=== PATIENT | male | born 1960 | race Caucasian/White ===

== ENCOUNTER 2018-08-23 17:49 | Emergency (ER) | payer OTHER, SELFPAY ==
[2018-08-23 18:03] VITALS: BP 136/90; PULSE 85; RESP 18; TEMP 35.8; O2SAT 98
--- NOTE | 2018-08-23 18:28 | DI.RAD.S_ITS ---
PROCEDURE: XR FOREARM RT 2V INDICATIONS: fall off ladder TECHNIQUE: 2 views of the forearm were acquired. COMPARISON: None. FINDINGS: Bones: No fractures or dislocations. No suspicious bony lesions. Soft tissues: No suspicious soft tissue calcifications or masses. IMPRESSION: No visualized acute fracture or dislocation. However, if clinical concern and/or pain persist, short interval imaging followup in 7-10 days is recommended, as occult injury cannot be definitively excluded. Dictated by: Katia Enriquez M.D. on 08/23/2018 at 19:19 Approved by: Katia Enriquez M.D. on 08/23/2018 at 19:21
--- NOTE | 2018-08-23 18:28 | DI.RAD.S_ITS ---
PROCEDURE: XR RIBS LT MIN 3V W CXR1V INDICATIONS: fall off ladder TECHNIQUE: 3 views of the left ribs were acquired, along with a single view chest. COMPARISON: None. FINDINGS: Surgical changes and devices: None. Bones and chest wall: No fractures or dislocations. No suspicious bony lesions. Overlying soft tissues appear unremarkable. Lungs and pleura: No pleural effusions or pneumothorax. Lungs appear clear. Mediastinum: Mediastinal contours appear normal. Heart size is normal. IMPRESSION: No visualized acute fracture or dislocation. However, if clinical concern and/or pain persist, short interval imaging followup in 7-10 days is recommended, as occult injury cannot be definitively excluded. Dictated by: Katia Enriquez M.D. on 08/23/2018 at 19:21 Approved by: Katia Enriquez M.D. on 08/23/2018 at 19:22
--- NOTE | 2018-08-23 18:53 | DI.CT.S_ITS ---
PROCEDURE: CT HEAD/BRAIN WO CON INDICATIONS: fall off ladder TECHNIQUE: Noncontrast 4.5 mm thick angled axial sections acquired from the foramen magnum to the vertex, with coronal and sagittal reformats. For radiation dose reduction, the following was used: automated exposure control, adjustment of mA and/or kV according to patient size. COMPARISON: None. FINDINGS: Image quality: Excellent. CSF spaces: Basal cisterns are patent. No extra-axial fluid collections. Ventricles are normal in size and shape. Brain: No midline shift. No intracranial masses or hemorrhage. Amor-white matter interface is normal. Skull and face: Calvarium and visualized facial bones are intact, without suspicious lesions. Sinuses: Visualized sinuses and mastoids are clear. IMPRESSION: 1. No acute intracranial process. Dictated by: Katia Enriquez M.D. on 08/23/2018 at 19:24 Approved by: Katia Enriquez M.D. on 08/23/2018 at 19:25
--- NOTE | 2018-08-23 19:45 | ED.FALL ---
HPI - Fall <AVTAR Ohara - Last Filed: 08/23/18 20:05> General Chief Complaint: Trauma Stated Complaint: fall from ladder, left arm pain,thinks broken Time Seen by Provider: 08/23/18 18:22 Source: patient Mode of arrival: ambulatory Limitations: no limitations History of Present Illness complaint: fall Onset (ago): day(s) (earlier today) Fall from: from height (distance) (approx 3 feet) Fall witnessed: no Place fall occurred: home Loss of consciousness: none Prolonged down time: no Symptoms prior to fall: none Context: other (on ladder to clean out gutter, reaching up to gutter and heard clunk clunk and the extension on the ladder was going back into itself, so down he went and then he landed on top of ladder on his back) Location of injury: head and chest Location of injury - extremities: Left: forearm Severity: mild Associated symptoms (after fall): denies Related Data Previous Rx's Medication Instructions Recorded albuterol sulfate [Proventil HFA] 1 puff INH QID #1 inh 10/26/16 azithromycin [Zithromax] 250 mg PO QDAY #6 tab 10/26/16 codeine-guaifenesin [Cheratussin 5 ml PO Q4HP PRN #6 ml 10/26/16 AC] Allergies Allergy/AdvReac Type Severity Reaction Status Date / Time No Known Drug Allergies Allergy Verified 08/23/18 20:11 Review of Systems <AVTAR Ohara - Last Filed: 08/23/18 20:05> Review of Systems All systems reviewed & are unremarkable except as noted in HPI and below Constitutional Reports system reviewed and no additional complaints, except as docu Eyes Denies blurry vision and Denies loss of vision ENT Ears, Nose, Mouth, and Throat: Denies dizziness Cardiovascular Denies chest pain, Denies syncope and Denies dyspnea Respiratory Denies cough, Reports pain on inspiration, Denies dyspnea and Denies wheezing Gastrointestinal Gastrointestinal: Denies abdominal pain and Denies vomiting Genitourinary Denies hematuria, Denies difficulty urinating and Denies flank pain Musculoskeletal Reports as per HPI, Denies abnormal gait, Denies back pain and Denies deformity Neurologic Denies abnormal gait, Denies dizziness, Denies syncope and Denies loss of vision Allergic/Immunologic Denies wheezing Exam <AVTAR Ohara - Last Filed: 08/23/18 20:05> Initial Vital Signs Initial Vital Signs: Vital Signs Temperature 96.5 F L 08/23/18 18:03 Pulse Rate 85 08/23/18 18:03 Respiratory Rate 18 08/23/18 18:03 Blood Pressure 136/90 08/23/18 18:03 Pulse Oximetry 98 08/23/18 18:03 Const General: cooperative, healthy appearing, comfortable, well developed and well groomed Nutritional Appearance: average body habitus Orientation: alert, awake and oriented x3 HENMT Head: normal to inspection and normocephalic Ears: hearing grossly normal bilaterally, external ears normal, TM's normal bilaterally and mastoids normal Nose: external nose normal, nares normal and septum normal Face and sinus: sinuses nontender, face symmetric and laceration (R eyebrow area, 1cm closed with scab, no s/s of infection, no erythema, mild tenderness, mild swelling and contusion to that area) Mouth: oral mucosae normal, lip normal, tongue normal, oropharynx normal, moist mucous membranes and No mouth trauma Teeth and gingiva: dentition normal and gingiva normal Throat: posterior oropharynx normal, tonsils normal and uvula midline Eyes General: appearance normal, both eyes and all related structures Visual Juárez: normal visual juárez by confrontation Eyelids: eyelids normal Conjunctivae: conjunctivae normal Sclera: sclerae normal Pupils: PERRL EOM: EOM intact bilaterally Direct ophthalmoscopy: normal light reflex, no papilledema, fundi normal bilaterally and anterior chamber normal Neck Neck: normal visual inspection, full ROM, no meningeal signs, trachea midline, supple, No lymphadenopathy, No midline deformity, No tender and No tracheal deviation Chest Chest: normal inspection of the chest, abnormal inspection of the chest and tenderness (L posterior ribs and contusion noted) Resp Effort & Inspection: normal respiratory effort and able to speak in complete sentences Auscultation: clear to auscultation bilaterally Cardio Rate: regular rate Rhythm: regular rhythm Heart Sounds: S1 normal and S2 normal Back/Spine/Pelvis Back: normal to inspection and No back tenderness Cervical Spine: cervical ROM normal Thoracic/Lumbar Spine: thoracic and lumbar spine normal to inspection and thoraco-lumbar ROM normal Sacroiliac Joints: nontender Skin General: no rashes or lesions noted, elasticity normal, turgor normal and dry skin Neuro General: alert, awake, oriented x3 and meningeal signs present Cognition: normal cognition Speech: speech normal Gait: normal gait Motor: muscle tone normal throughout Sensory Exam: no sensory deficits noted Other: GCS 15 Extrem General: normal to inspection and full ROM Right upper extremity: normal to inspection, full ROM and normal capillary refill Left upper extremity: full ROM, normal capillary refill and elbow/forearm (abrasion with contusion starting to posterior fa with tenderness) Right lower extremity: normal to inspection and full ROM Left lower extremity: full ROM and lower leg (abrasion to lower leg, jean-baptiste area) Psych Appearance: grossly normal and well kempt Mental Status: mental status grossly normal Speech and Movement: speech and movement normal Mood: congruent mood Affect: normal affect Attitude: cooperative Thought Process: normal Thought Content: normal Judgment: judgment good <DO Marc Singh Last Filed: 08/23/18 21:29> Initial Vital Signs Initial Vital Signs: Vital Signs Temperature 96.5 F L 08/23/18 18:03 Pulse Rate 85 08/23/18 18:03 Respiratory Rate 18 08/23/18 18:03 Blood Pressure 136/90 08/23/18 18:03 Pulse Oximetry 98 08/23/18 18:03 Course <AVTAR Ohara - Last Filed: 08/23/18 20:05> Course Narrative: results and dc plan discussed, pt has gabapentin and meloxicam at home for chronic back pain issues Orders Ordered: ED Orders 08/23/18 18:28 XR forearm LT 2V Stat XR ribs LT min 3V w CXR1V Stat 08/23/18 18:53 CT head/brain wo con Stat Discontinued Medications Hydrocodone Bitart/Acetaminophen ([place] 5/325) 1 tab PO NOW ONE Stop: 08/23/18 20:10 Last Admin: 08/23/18 20:12 Dose: 1 tab Vital Signs - 8 hr 08/23/18 18:03 08/23/18 20:09 08/23/18 20:14 Temperature 96.5 F L Pulse Rate 85 80 87 Respiratory Rate 18 13 Blood Pressure 136/90 140/82 Blood Pressure [Right Arm] 140/98 H Pulse Oximetry 98 97 98 <DO Marc Singh Last Filed: 08/23/18 21:29> Orders Ordered: ED Orders 08/23/18 18:28 XR forearm LT 2V Stat XR ribs LT min 3V w CXR1V Stat 08/23/18 18:53 CT head/brain wo con Stat Discontinued Medications Hydrocodone Bitart/Acetaminophen ([place] 5/325) 1 tab PO NOW ONE Stop: 08/23/18 20:10 Last Admin: 08/23/18 20:12 Dose: 1 tab Vital Signs - 8 hr 08/23/18 18:03 08/23/18 20:09 08/23/18 20:14 Temperature 96.5 F L Pulse Rate 85 80 87 Respiratory Rate 18 13 Blood Pressure 136/90 140/82 Blood Pressure [Right Arm] 140/98 H Pulse Oximetry 98 97 98 MDM - Fall <AVTAR Ohara - Last Filed: 08/23/18 20:05> Differential Diagnosis Likely other (fall, closed head injury, fx, sprains, contusions, lacs, abrasions) Discharge Plan Departure Patient Disposition: Home Clinical Impression: Fall, Contusion of rib, Abrasion, multiple sites Discharge Date/Time: 08/23/18 20:15 Interventions: ED Discharge Assessment Last Done: 08/23/18 20:14 Instructions: DI for Contusion, DI for Abrasion Prescriptions: No Action azithromycin [Zithromax] 250 MG tablet 250 mg PO QDAY Qty: 6 RF: 0 codeine-guaifenesin [Cheratussin AC] 118 ML liquid 5 ml PO Q4HP PRNQty: 6 RF: 0 albuterol sulfate [Proventil HFA] 90 MCG/PUFF HFA aerosol inhaler 1 puff INH QID Qty: 1 RF: 0 Referrals: Leena Gayle MD [Primary Care Provider] - (follow up in approx 5-7 days as needed) <Jenna Meyers DO - Last Filed: 08/23/18 21:29> Cosign ED Attending Cosignature Attestation: I was immediately available in the department for consultation. This documentation has been reviewed. Patient Head CT, Rib xray and forearm xray are negative and I agree with assessment and plan. Supervised by Jenna Meyers DO
[2018-08-23 20:09] VITALS: BP 140/98; PULSE 80; O2SAT 97
[2018-08-23] MEDS: HYDROCODONE/ACET 5/325 TABLET 1 TAB PO (20:12)
[2018-08-23 20:14] VITALS: BP 140/82; PULSE 87; RESP 13; O2SAT 98
== END 2018-08-23 20:15 | disposition home or self-care (01) ==
PROVIDERS: Emergency Provider Nurse Practitioner; Family Provider Family Medicine; PCP Family Medicine
DX: S20.219A Contusion of unspecified front wall of thorax, initial encounter (principal); S50.312A Abrasion of left elbow, initial encounter; S80.812A Abrasion, left lower leg, initial encounter; W11.XXXA Fall on and from ladder, initial encounter
CPT/HCPCS: 70450; 71101; 73090; 99283

== ENCOUNTER → 2021-01-30 07:37 | Outpatient (CLI) | payer OTHER, SELFPAY ==
[2021-01-30] MEDS: COVID-19 VACC, Ad26(JANSSEN)/PF 0.5 ML IM (07:48)
== END ==
PROVIDERS: Family Provider Family Medicine; PCP Family Medicine; Visit Provider Internal Medicine
DX: Z23 Encounter for immunization (principal)
CPT/HCPCS: 0031A; 91303

== ENCOUNTER → 2023-02-02 12:49 | Outpatient (CLI) | payer OTHER, SELFPAY ==
--- NOTE | 2023-02-02 12:56 | DI.RAD.S_ITS ---
PROCEDURE: XR CHEST 2V INDICATIONS: XRAY-WHEEZING TECHNIQUE: 2 views of the chest were acquired. COMPARISON: None. FINDINGS: Surgical changes and devices: None. Lungs and pleura: Lungs are clear. No pleural effusions or pneumothorax. Mediastinum: Mediastinal contours are normal. Heart size is normal. Bones and chest wall: No suspicious bony abnormalities. Soft tissues appear unremarkable. IMPRESSION: No acute cardiopulmonary findings. Dictated by: Kym Lam M.D. on 02/02/2023 at 14:33 Approved by: Kym Lam M.D. on 02/02/2023 at 14:33
== END ==
PROVIDERS: Family Provider Family Medicine; PCP Family Medicine; Referring Provider Family Medicine; Visit Provider Family Medicine
DX: R06.2 Wheezing (principal)
CPT/HCPCS: 71046

== ENCOUNTER → 2023-02-18 14:53 | Outpatient (CLI) | payer OTHER, SELFPAY ==
--- NOTE | 2023-02-27 12:08 | PM.PFT.1 ---
Pulmonary Function Test Referral & Results Date Patient Seen: 02/18/23 Results: The spirometry demonstrates an FVC of 4.12 L which is 71% of predicted. The FEV1 was measured at 2.23 L which is 51% of predicted. The FEV1/FVC ratio was 54 which is 72% of predicted. Following the administration of bronchodilator there was a 24% improvement in FEV1 and a 124% improvement in FEF 25-75%. Lung volumes show an SVC of 4.68 L which is 83% of predicted. The diffusing capacity was measured at 36.01 which is 89% of predicted. The maximum voluntary ventilation was reduced Interpretation: This study demonstrates moderate obstructive lung disease with evidence of significant benefit following bronchodilator as above Lung volumes are probably normal although the maybe a slight reduction in SVC suggesting the possibility of mild restrictive lung disease Clinical correlation suggested
== END ==
PROVIDERS: Family Provider Family Medicine; PCP Family Medicine; Referring Provider Family Medicine; Visit Provider Family Medicine
DX: R06.2 Wheezing (principal); F17.210 Nicotine dependence, cigarettes, uncomplicated; J98.8 Other specified respiratory disorders
CPT/HCPCS: 94060; 94726; 94729

== ENCOUNTER → 2023-02-20 15:43 | Outpatient (CLI) | payer OTHER, SELFPAY ==
--- NOTE | 2023-02-20 15:48 | DI.CT.S_ITS ---
PROCEDURE: CT CHEST W CON INDICATIONS: Wheezing TECHNIQUE: After the administration of intravenous contrast, 5 mm thick sections acquired from the pulmonary apices to the posterior costophrenic angles. 1 mm axial lung, 5 mm thick coronal and sagittal reformats and 7 mm axial MIP were acquired. For radiation dose reduction, the following was used: automated exposure control, adjustment of mA and/or kV according to patient size. COMPARISON: None. FINDINGS: Image quality: Excellent. Lungs and pleura: No acute air space opacities. No pleural effusions or pneumothorax. Central and peripheral airways are patent and normal in caliber. Gpbi-uz-vklkqkkz bronchial thickening. Mediastinum: Heart size is normal. No pericardial effusion. No mediastinal or hilar adenopathy by size criteria. Thoracic aorta and central pulmonary arteries are normal in size. Esophagus is normal in caliber. No hiatal hernia. Bones and chest wall: No suspicious bony lesions. No vertebral body compression fractures. No axillary or supraclavicular adenopathy by size criteria. Thyroid gland is unremarkable . Abdomen: Visualized upper abdominal solid organs appear normal. Upper abdominal bowel loops are normal in caliber. IMPRESSION: [id number] bronchial thickening, suggestive of respiratory bronchitis. No mosaic attenuation to suggest small airways disease. Dictated by: Ayush Mejia M.D. on 02/20/2023 at 16:32 Approved by: Ayush Mejia M.D. on 02/20/2023 at 16:35
== END ==
PROVIDERS: Family Provider Family Medicine; PCP Family Medicine; Referring Provider Family Medicine; Visit Provider Family Medicine
DX: R06.2 Wheezing (principal)
CPT/HCPCS: 71260; Q9967

== ENCOUNTER 2023-07-07 12:03 | Day surgery (SDC) | payer OTHER, SELFPAY ==
[2023-07-07] MEDS: LACTATED RINGERS 1,000 ML 200 ML IV (12:23)
[2023-07-07 12:32] VITALS: BP 143/90; PULSE 84; RESP 16; TEMP 36.1; O2SAT 97; BMI 27.8
--- NOTE | 2023-07-07 13:25 | PM.HP.1 ---
History of Present Illness History of Present Illness Date Patient Seen: 07/07/23 Time Patient Seen: 13:25 Chief complaint: SDC Narrative: 63-year-old male here for screening colonoscopy. Previous colonoscopy greater than 10 years ago normal. No family history of intestinal malignancy. [facility] Social History household members: spouse Smoking Status: Former smoker Meds Home Medications and Allergies Home Medications Medication Instructions Recorded Confirmed Type amitriptyline 25 mg tablet 25 mg PO ONCE PM 07/07/23 07/07/23 History fluticasone 250 mcg-salmeterol 50 1 ea inhalation BID 07/07/23 07/07/23 History mcg/dose blistr powdr for inhalation meloxicam 7.5 mg tablet 7.5 mg PO DAILY 07/07/23 07/07/23 History Allergies Allergy/AdvReac Type Severity Reaction Status Date / Time No Known Drug Allergies Allergy Verified 08/23/18 20:11 Exam Vital Signs (past 8 hours): - 07/07/23 12:32 Temperature 97 F L Pulse Rate 84 Respiratory Rate 16 Blood Pressure 143/90 H Pulse Oximetry 97 Oxygen Delivery Method Room Air Oxygen Delivery Method Room Air Narrative Exam Narrative: General adult man alert oriented no acute distress Abdomen soft nontender nondistended Assessment & Plan Assessment & Plan narrative: The patient requires colorectal screening and colonoscopy is recommended. Technical details were discussed. Risks, benefits, alternatives explained. Risks including but not limited to myocardial infarction, aspiration, bleeding, pain, missed lesion, incomplete examination, need for further radiographic studies, colonic perforation, and need for major abdominal surgery were discussed. All questions were answered to their satisfaction, and they are in agreement with this plan.
[2023-07-07 13:59] VITALS: BP 131/81; PULSE 80; RESP 16; TEMP 36.2; O2SAT 95
--- NOTE | 2023-07-07 14:02 | PM.OP.COLON ---
Operative Date/Time/Diagnoses Date of procedure: 07/07/23 Time of procedure: 14:03 Pre-op diagnosis: Colorectal screening Post-op diagnosis: same Procedure & Clinicians Study performed: Colonoscopy Same procedure as scheduled: Yes Indications: Colorectal screening Surgeon: Joe Parker Procedure Notes Procedure in detail: The history and physical was performed/updated and the patient is ASA class is 2. The procedure was discussed in detail with the patient. Potential risks complications including infection, bleeding, missed diagnosis, perforation, need for surgery, and were explained. Their questions were answered and informed consent was obtained. Patient was brought to the procedure room and placed standard monitoring equipment. The patient's vital signs were monitored continuously throughout the entire procedure. Prior to starting time-out was performed. The patient was placed in the left lateral recumbent position. Procedural sedation was administered by anesthesia. Examination began with a thorough inspection of the perianal area there was no evidence of fissures, fistulae, external hemorrhoids or cutaneous malignancy. The colonoscopy scope was then placed into the anal canal and was advanced to the cecum, which was identified by the ileocecal valve, the appendiceal orifice and the confluence of the taenia. The scope was then slowly withdrawn examining colon thoroughly in all directions, irrigating it of any residual stool. No masses or polyps. Normal healthy colon. The patient tolerated the procedure well. They will be discharged once criteria are met. The prep was of good/excellent quality. The withdrawl time was 6 minutes. Specimen(s): none sent Impression: Normal colonoscopy Post-procedure Recommendations: Colonoscopy in 10 years Disposition: same day surgery
[2023-07-07 14:04] VITALS: BP 131/90; PULSE 87; RESP 16; O2SAT 94
[2023-07-07 14:10] VITALS: BP 130/96; PULSE 86; RESP 12; TEMP 36.2; O2SAT 94
[2023-07-07 14:15] VITALS: BP 135/94; PULSE 83; RESP 12; O2SAT 94
[2023-07-07 14:25] VITALS: BP 138/90; PULSE 83; RESP 16; TEMP 36.6; O2SAT 96
== END 2023-07-07 14:32 | disposition home or self-care (01) ==
PROVIDERS: Family Provider Family Medicine; PCP Family Medicine; Referring Provider Surgery; Visit Provider Surgery
PROC: 0DJD8ZZ Inspection of Lower Intestinal Tract, Via Natural or Artificial Opening Endoscopic (ICD-10-PCS; CPT 45378; principal; 2023-07-07 13:15)
DX: Z12.11 Encounter for screening for malignant neoplasm of colon (principal)
CPT/HCPCS: 45378; J2704; J3010

== ENCOUNTER → 2023-09-17 15:58 | Outpatient (CLI) | payer OTHER, SELFPAY ==
[2023-09-17 18:36] LABS: BUN Creatinine Ratio 15.1 (6-22); Blood Urea Nitrogen 16 mg/dL (9-20); Calcium 9.2 mg/dL (8.4-10.2); Carbon Dioxide 27 mmol/L (22-32); Chloride 102 mmol/L (98-107); Estimated Glomerular Filt Rate > 60 mL/min (>60); Glucose 99 mg/dL (80-110); HEMOLYSIS < 15 (0-50); Potassium 4.2 mmol/L (3.4-5.1); Sodium 138 mmol/L (137-145)
== END ==
PROVIDERS: Family Provider Family Medicine; PCP Family Medicine; Referring Provider Urology; Visit Provider Urology
DX: R31.21 Asymptomatic microscopic hematuria (principal); Z77.22 Contact with and (suspected) exposure to environmental tobacco smoke (acute) (chronic)
CPT/HCPCS: 36415; 80048

== ENCOUNTER → 2023-09-22 10:42 | Outpatient (CLI) | payer OTHER, SELFPAY ==
--- NOTE | 2023-09-22 11:00 | DI.MRI.S_ITS ---
PROCEDURE: MR PELVIC PROSTATE PROTOCOL INDICATIONS: Elevated PSA TECHNIQUE: Coronal HASTE, axial T1 FSE with fat saturation, 3-plane nonbreath-hold T2 FSE. After the administration of contrast, dynamic axial, delayed axial and coronal VIBE or 2-D FLASH with fat saturation through the pelvis. Optional diffusion weighted imaging and ADC may be performed. COMPARISON: None. FINDINGS: Image quality: Diffusion weighted and dynamic contrast enhanced images are diagnostic. Prostate: Gland size is 4.2 x 4.6 x 6.1 cm; ellipsoid gland volume is 61 mL. No PI-RADS 3 through 5 lesions. Focus of wedge-shaped T2 hypointense signal with capsular retraction and no restricted diffusion within the medial peripheral zone of the prostate midgland (series 5, image 13) Genitourinary system: Bladder wall thickness is normal. Distal ureters are non distended. Bowel and peritoneum: No pathologic free pelvic fluid. Inferior colon and small bowel loops are normal in caliber. Colonic diverticulosis without evidence of diverticulitis. Nodes and vessels: No pelvic or inguinal adenopathy by size criteria. Iliac vessels are normal in caliber. Soft tissues: No inguinal hernias. Bones: Marrow demonstrates normal overall signal, without lesions to suggest metastases. IMPRESSION: Focal region of chronic prostatitis/scar in the right medial peripheral zone of the mid gland. No PI-RADS 3 through 5 lesions. Dictated by: Ayush Mejia M.D. on 09/22/2023 at 16:32 Approved by: Ayush Mejia M.D. on 09/22/2023 at 16:35
--- NOTE | 2023-09-22 11:30 | DI.CT.S_ITS ---
PROCEDURE: CT ABDOMEN PELVIS WO/W CON INDICATIONS: Asymptomatic microscopic hematuria secondhand smoke exposure TECHNIQUE: Optional 5 mm thick noncontrast images acquired from the diaphragm to the symphysis pubis. After the administration of intravenous contrast, 5 mm thick images acquired from the diaphragm to the symphysis pubis after a 10-minute delay. 2 mm thick coronal and sagittal reformats were then performed of the kidneys and ureters. For radiation dose reduction, the following was used: automated exposure control, adjustment of mA and/or kV according to patient size. COMPARISON: None. FINDINGS: Image quality: Excellent. Lung bases: Lung bases are clear. Heart size is normal. Urinary system: Both kidneys are normal in size, without hydronephrosis or nephrolithiasis on pre-contrast images. No perinephric fat stranding. There is normal bilateral renal enhancement. Renal calyces appear normal in morphology when filled with contrast. Opacified portions of both ureters demonstrate normal caliber. Bladder wall thickness is normal. No calcified bladder stones. No complex renal cystic lesions which require follow-up. Left-sided renal sinus cysts. Other solid organs: Liver is normal in size and enhancement. Gallbladder is unremarkable. Biliary system is non dilated. Pancreas enhances normally. Spleen is normal in size and enhancement. No adrenal nodules. Peritoneum and bowel: Bowel loops demonstrate normal wall thickness and caliber. No free fluid or air. 2.8 centimeter focus of intraperitoneal fat necrosis in the left mid abdomen (series 2, image 44). Colonic diverticulosis without evidence of diverticulitis. Nodes and vessels: No retroperitoneal or mesenteric adenopathy by size criteria. Aorta and inferior vena cava are normal in size. Abdominal wall: Small umbilical hernia containing fat. Pelvis: No pathologic free pelvic fluid. Fat within the left inguinal canal. Prostatomegaly. Bones: No suspicious bony lesions. No vertebral body compression fractures. IMPRESSION: No nephrolithiasis or filling defects within the opacified renal collecting system or ureters. Urinary bladder is incompletely distended with contrast. Dictated by: Ayush Mejia M.D. on 09/22/2023 at 13:46 Approved by: Ayush Mejia M.D. on 09/22/2023 at 13:50
== END ==
PROVIDERS: Family Provider Family Medicine; PCP Family Medicine; Referring Provider Urology; Visit Provider Urology
DX: N41.1 Chronic prostatitis (principal); N42.89 Other specified disorders of prostate; R97.20 Elevated prostate specific antigen [PSA]; R31.21 Asymptomatic microscopic hematuria; K57.90 Diverticulosis of intestine, part unspecified, without perforation or abscess without bleeding; Z77.22 Contact with and (suspected) exposure to environmental tobacco smoke (acute) (chronic)
CPT/HCPCS: 72197; 74178; A9579

== ENCOUNTER → 2023-12-29 10:08 | Outpatient (CLI) | payer OTHER, SELFPAY ==
--- NOTE | 2023-12-29 | DI.RAD.S_ITS ---
PROCEDURE: XR KNEE LT 3V INDICATIONS: chronic left knee pain TECHNIQUE: 3 views of the knee were acquired. COMPARISON: None. FINDINGS: Bones: No fractures or dislocations. No suspicious bony lesions. Moderate to severe tricompartmental arthritic change. Periarticular osteophytes are present. No distinct erosions. Soft tissues: Ieki-gt-glmnajgn joint effusion. No suspicious soft tissue calcifications. IMPRESSION: Moderate to severe tricompartmental arthritic changes. Dictated by: Katia Enriquez M.D. on 12/29/2023 at 12:23 Approved by: Katia Enriquez M.D. on 12/29/2023 at 12:24
== END ==
PROVIDERS: Family Provider Family Medicine; PCP Family Medicine; Referring Provider Family Medicine; Visit Provider Family Medicine
DX: M25.562 Pain in left knee (principal); M25.462 Effusion, left knee; G89.29 Other chronic pain
CPT/HCPCS: 73562

== ENCOUNTER → 2024-02-04 14:43 | Outpatient (CLI) | payer OTHER, SELFPAY | PROVIDERS: Family Provider Family Medicine; PCP Family Medicine; Visit Provider Urology | DX: N40.1 Benign prostatic hyperplasia with lower urinary tract symptoms (principal); R31.21 Asymptomatic microscopic hematuria; R39.16 Straining to void; R97.20 Elevated prostate specific antigen [PSA]; R82.81 Pyuria; R30.0 Dysuria; R39.9 Unspecified symptoms and signs involving the genitourinary system; Z77.22 Contact with and (suspected) exposure to environmental tobacco smoke (acute) (chronic) | CPT/HCPCS: 51798; 81002; 87086 ==

== ENCOUNTER → 2024-05-16 09:34 | Outpatient (CLI) | payer OTHER, SELFPAY | PROVIDERS: Family Provider Family Medicine; PCP Family Medicine; Referring Provider Urology; Visit Provider Urology | DX: R97.20 Elevated prostate specific antigen [PSA] (principal) | CPT/HCPCS: 36415; 84153; 84154 ==

== ENCOUNTER → 2024-08-17 10:12 | Outpatient (CLI) | payer BC, OTHER, SELFPAY ==
[2024-08-17 11:21] LABS: Add Manual Diff / Slide Review NO; Basophils Absolute Auto 0 /uL (0-100); Eosinophils Absolute Auto 300 /uL (0-450); Eosinophils Percent Auto 5.3 % (2-4); Hematocrit 44.4 % (41-53); Hemoglobin 14.8 g/dL (13.5-17.5); Lymphocytes Absolute Auto 1300 /uL (1100-4500); Lymphocytes Percent Auto 25.9 % (25-40); Mean Corpuscular HGB Conc 33.3 % (30-36); Mean Corpuscular Hemoglobin 28.5 PG (26-34); Mean Corpuscular Volume 85.5 fL (80-100); Monocytes Absolute Auto 300 /uL (0-900); Monocytes Percent Auto 6.9 % (3-14); Neutrophils Absolute Auto 3000 /uL (1500-7000); Neutrophils Percent Auto 60.9 % (50-75); Platelet Count 221 X10^3/uL (150-400); Red Blood Cell Count 5.19 X10^6/uL (4.5-5.9); Red Cell Distribution Width 14.4 % (11.6-14.8); White Blood Cell Count 4.9 X10^3/uL (4.5-11.0)
[2024-08-18 15:11] LABS: PSA, Total 5.5 ng/mL (0.0-4.0)
== END ==
PROVIDERS: Urology; Family Provider Family Medicine; PCP Family Medicine; Referring Provider Internal Medicine Critical Care Medicine; Visit Provider Internal Medicine Critical Care Medicine
DX: R97.20 Elevated prostate specific antigen [PSA] (principal); J44.9 Chronic obstructive pulmonary disease, unspecified
CPT/HCPCS: 36415; 81332; 82103; 84153; 84154; 85025

== ENCOUNTER → 2024-08-25 09:53 | Outpatient (CLI) | payer OTHER, SELFPAY | LOC: RESP 09:54 | PROVIDERS: Family Provider Family Medicine; PCP Family Medicine; Referring Provider Family Medicine; Visit Provider Family Medicine | DX: J44.1 Chronic obstructive pulmonary disease with (acute) exacerbation (principal) | CPT/HCPCS: 94060; 94726; 94729 ==

== ENCOUNTER → 2024-09-24 11:44 | Outpatient (CLI) | payer OTHER, SELFPAY ==
--- NOTE | 2024-09-24 11:49 | DI.CT.S_ITS ---
PROCEDURE: CT CHEST HIGH RESOLUTION INDICATIONS: sob TECHNIQUE: Noncontrast 1.0 and 5.0 mm thick contiguous axial sections from the pulmonary apex to the posterior costophrenic angles, with 7 mm thick coronal and sagittal MIP reformats. 1 mm thick dynamic expiratory images acquired through the upper, mid, and lower lungs. 1.0 mm thick axial sections acquired from the katie to the posterior costophrenic angles in the prone end-inspiration position. For radiation dose reduction, the following was used: automated exposure control, adjustment of mA and/or kV according to patient size. COMPARISON: [facility], CT, CT CHEST W CON, 02/20/2023, 15:58. FINDINGS: Image quality: Diagnostic. Lower Neck: No enlarged lymph nodes. Thyroid: No thyroid nodules which require sonographic follow up, per consensus guidelines. Axillae: No enlarged lymph nodes. Chest Wall: Unremarkable. Bones: Unremarkable. Lungs and Pleura: No pneumothorax or pleural effusions. No consolidation or suspicious nodules. mild bronchial wall thickening similar to the prior exam. Heart: Heart size is normal. No pericardial effusion. Thoracic Vessels: The aorta and pulmonary arteries demonstrate normal size. Mediastinum and Aria: No enlarged lymph nodes. Esophagus: No wall thickening. No hiatal hernia. Upper Abdomen: Visualized upper abdomen solid organs and bowel loops appear normal. IMPRESSION: No acute abnormality is seen in the chest. Mild bronchial wall thickening similar to the prior CT. No definite of chronic interstitial lung disease. Approved by: Brian Austin M.D. on 09/24/2024 at 13:23
== END ==
LOC: CT 11:48
PROVIDERS: Family Provider Family Medicine; PCP Family Medicine; Referring Provider Internal Medicine Critical Care Medicine; Visit Provider Internal Medicine Critical Care Medicine
DX: J44.9 Chronic obstructive pulmonary disease, unspecified (principal)
CPT/HCPCS: 71250

== ENCOUNTER → 2024-09-28 15:10 | Outpatient (CLI) | payer BC, OTHER, SELFPAY | PROVIDERS: Family Provider Family Medicine; PCP Family Medicine; Visit Provider Urology | DX: R39.16 Straining to void (principal); N40.1 Benign prostatic hyperplasia with lower urinary tract symptoms; R31.21 Asymptomatic microscopic hematuria; R97.20 Elevated prostate specific antigen [PSA]; R39.9 Unspecified symptoms and signs involving the genitourinary system; Z77.22 Contact with and (suspected) exposure to environmental tobacco smoke (acute) (chronic) | CPT/HCPCS: 51798; 81002; 87086; 99214 ==

== ENCOUNTER → 2024-12-01 15:27 | Outpatient (CLI) | payer BC, OTHER, SELFPAY ==
[2024-12-01 16:30] LABS: Add Manual Diff / Slide Review NO; Basophils Absolute Auto 100 /uL (0-100); Basophils Percent Auto 0.8 % (0-2); Eosinophils Absolute Auto 200 /uL (0-450); Eosinophils Percent Auto 2.7 % (2-4); Hematocrit 41.6 % (41-53); Hemoglobin 13.7 g/dL (13.5-17.5); Lymphocytes Absolute Auto 1400 /uL (1100-4500); Lymphocytes Percent Auto 18.4 % (25-40); Mean Corpuscular Volume 84.9 fL (80-100); Monocytes Absolute Auto 400 /uL (0-900); Monocytes Percent Auto 5.1 % (3-14); Neutrophils Absolute Auto 5400 /uL (1500-7000); Platelet Count 334 X10^3/uL (150-400); Red Blood Cell Count 4.91 X10^6/uL (4.5-5.9); Red Cell Distribution Width 14.3 % (11.6-14.8); White Blood Cell Count 7.4 X10^3/uL (4.5-11.0)
[2024-12-02 15:36] LABS: PSA Free % 19.3 % (.)
[2024-12-03 20:36] LABS: Alder IgE <0.10 kU/L (Class 0); Alternaria alternata IgE <0.10 kU/L (Class 0); Aspergillus fumigatus IgE <0.10 kU/L (Class 0); Box Elder IgE <0.10 kU/L (Class 0); Cat Dander IgE <0.10 kU/L (Class 0); Cladosporium herbarum IgE <0.10 kU/L (Class 0); Cockroach IgE <0.10 kU/L (Class 0); Cottonwood IgE <0.10 kU/L (Class 0); D farinae IgE <0.10 kU/L (Class 0); D pteronyssinus IgE <0.10 kU/L (Class 0); Dog Dander IgE <0.10 kU/L (Class 0); Elm Tree IgE <0.10 kU/L (Class 0); IgE Mugwort <0.10 kU/L (Class 0); IgE Thistle,Russian <0.10 kU/L (Class 0); Immunoglobulin E 25 IU/mL (6-495); Mountain Cedar IgE <0.10 kU/L (Class 0); Mouse Urine Proteins IgE <0.10 kU/L (Class 0); Oak Tree IgE <0.10 kU/L (Class 0); Penicillium chrysogen IgE <0.10 kU/L (Class 0); Pigweed, Common IgE <0.10 kU/L (Class 0); Sheep Sorrel IgE <0.10 kU/L (Class 0); Silver Birch IgE <0.10 kU/L (Class 0); Timothy Grass IgE <0.10 kU/L (Class 0)
== END ==
PROVIDERS: Urology; Family Provider Family Medicine; PCP Family Medicine; Referring Provider Internal Medicine Critical Care Medicine; Visit Provider Internal Medicine Critical Care Medicine
DX: R97.20 Elevated prostate specific antigen [PSA] (principal); J45.909 Unspecified asthma, uncomplicated
CPT/HCPCS: 36415; 82785; 84153; 84154; 85025; 86003

== ENCOUNTER → 2025-02-20 13:06 | Outpatient (CLI) | payer BC, OTHER, SELFPAY | PROVIDERS: Family Provider Family Medicine; PCP Family Medicine; Referring Provider Family Medicine; Visit Provider Urology | DX: R97.20 Elevated prostate specific antigen [PSA] (principal); N40.1 Benign prostatic hyperplasia with lower urinary tract symptoms; R39.16 Straining to void | CPT/HCPCS: 36415; 84153; 84154 ==

== ENCOUNTER 2025-03-17 10:27 | Day surgery (SDC) | payer BC, OTHER, SELFPAY ==
[2025-03-15 12:11] VITALS: BMI 30.5
[2025-03-17] VITALS (8 sets, daily range): BP systolic 97–161; BP diastolic 55–94; PULSE 85–91; RESP 16–18; TEMP 36.2–36.4; O2SAT 93–98; BMI 30.5
--- NOTE | 2025-03-17 10:47 | SUR.PREOP ---
See verbal verified order from Yue AYALA for Yonny carlin. Informed that pt did not use inhalers today.
[2025-03-17] MEDS: ALBUTEROL/IPRATROPIUM 3 ML AMPUL INH (11:02)
[2025-03-17] MEDS: LACTATED RINGERS 1,000 ML 42 ML IV ×2 (11:03→14:11)
--- NOTE | 2025-03-17 12:37 | PM.PREOP ---
Pre-operative Note COVID-19 COVID-19 status: Not tested Interval Note History & Physical reviewed/Exam performed by Physician: Yes Changes to H&P: No ASA Class (for procedural sedation): II
--- NOTE | 2025-03-17 12:40 | SUR.PREOP ---
Patient up to the bathroom to void. Apologized for delay in surgery start time (previous case ran over); called to inform of delay. Warm blankets provided.
[2025-03-17] MEDS: CEFAZOLIN 2 GM/100 ML PREMIX 100 ML IV (13:05)
--- NOTE | 2025-03-17 13:23 | SUR.OPER ---
Supine on padded OR bed with pink pads, head on pillow, arms padded and tucked at sides, legs uncrossed, safety belt at thigh, tape over blanket over lower legs .
[2025-03-17] MEDS: BUPIVACAINE 0.5% W/ EPI (PF) 30 ML VIAL INJ (13:33)
--- NOTE | 2025-03-17 14:41 | PM.OP.1 ---
Operative Date/Time/Diagnoses Date of procedure: 03/17/25 Time of procedure: 14:41 Pre-op diagnosis: Right inguinal hernia Post-op diagnosis: same Procedure & Clinicians Procedure: Laparoscopic right inguinal hernia repair with mesh Same procedure as scheduled: Yes Surgeon: Jesus Dorado [employer] Architect: Mejia Parekh Anesthesia Type: General Operative Notes Procedure in detail: The patient was given preoperative antibiotics. The patient was brought to the operating room, placed on the table in the supine position with the arms tucked and general anesthesia was induced. The abdomen was prepped and draped in the usual fashion. A time-out was performed. A 1 cm infraumbilical incision was created and dissection was carried down to the small umbilical hernia. The hernia sac was opened allowing access to the abdominal cavity. The Suellen port was placed and the abdomen was insufflated to 15 mmHg. The camera was inserted, there was no evidence of any injury from the entry. There was a right indirect inguinal hernia. 5 mm ports were placed under direct vision in the mid left and mid right abdomen. The patient was positioned in steep Trendelenburg. We created right peritoneal flap. The peritoneum was dissected off the right cord structures. A large right Bard mesh was brought in and placed over the defect with the medial edge against Chad's ligament. We then closed the peritoneal flap with a running 3-0 barbed suture. We took one last look around the abdomen and saw no other abnormalities. The suture was removed and accounted for. The 5 mm ports were removed under direct vision. The abdomen was desufflated. The Suellen port was removed. Additional local was injected into the fascia and the fascial incision was closed with 2 interrupted 0 Vicryl sutures. The skin incisions were closed with 4 Monocryl, Steri-Strips and Band-Aids. EBL: 10 mL Mejia ROACH provided assistance with exposure, retraction and closure of incisions. Post-operative Condition: stable Disposition: PACU
[2025-03-17] MEDS: OXYCODONE IR 5 MG TABLET PO ×2 (15:15→15:43)
[2025-03-17] MEDS: hydrOXYzine 50 MG/ML INJ 25 MG IM (15:43)
== END 2025-03-17 16:16 | disposition home or self-care (01) ==
PROVIDERS: Family Provider Family Medicine; PCP Family Medicine; Referring Provider Surgery; Visit Provider Surgery
PROC: 0YQ54ZZ Repair Right Inguinal Region, Percutaneous Endoscopic Approach (ICD-10-PCS; CPT 49650; principal; 2025-03-17 11:45)
DX: K40.90 Unilateral inguinal hernia, without obstruction or gangrene, not specified as recurrent (principal)
CPT/HCPCS: 49650; C1781; J0690; J1100; J1885; J2405; J2704; J3010; J3410